=== PATIENT | female | born 1970 | race Caucasian/White ===

== ENCOUNTER 2017-05-20 17:25 | Emergency (ER) | payer BC ==
[~2017-05-20] VITALS: Wt 76.7 kg
[~2017-05-20 17:25] MED LIST: ACETAMINOPHEN-H1 TA1 PO; HYDROCODONE BIT1 T11 PO; SERTRALINE HYD100 MG PO
[2017-05-20] MEDS ORDERED: ROBITUSSIN DM 105 ML PO (17:35)
[2017-05-20] MEDS ORDERED: PREDNISONE10 MG PO (17:35)
[2017-05-20] MEDS ORDERED: FLONASE ALLERG9.9 ML NAS (17:35)
[2017-05-20] MEDS ORDERED: CLARITIN10 MG PO (17:35)
[2017-05-20] MEDS ORDERED: LEVAQUIN750 M1 PO (18:25)
== END 2017-05-20 18:24 | disposition home or self-care (01) ==
LOC: ED 17:25
DX: J18.9 Pneumonia, unspecified organism (principal); R03.0 Elevated blood-pressure reading, without diagnosis of hypertension; F17.200 Nicotine dependence, unspecified, uncomplicated; Z79.899 Other long term (current) drug therapy

== ENCOUNTER 2021-10-18 08:49 | Emergency (ER) | payer BC ==
[~2021-10-18] VITALS: Ht 170.1 cm; Wt 77.1 kg
[~2021-10-18 08:49] MED LIST changes: +CLARITIN10 MG PO; +FLONASE ALLERG9.9 ML NAS; +LEVAQUIN750 M1 PO; +PREDNISONE10 MG PO; +ROBITUSSIN DM 105 ML PO
== END 2021-10-18 09:56 | disposition home or self-care (01) ==
LOC: ED 08:49
DX: S82.891A Other fracture of right lower leg, initial encounter for closed fracture (principal); Z79.899 Other long term (current) drug therapy; Z79.2 Long term (current) use of antibiotics; W18.42XA Slipping, tripping and stumbling without falling due to stepping into hole or opening, initial encounter; Y93.89 Activity, other specified; Y92.89 Other specified places as the place of occurrence of the external cause; Y99.8 Other external cause status